=== PATIENT | female | born 1975 | race Caucasian/White ===

== ENCOUNTER 2022-08-20 15:04 | Emergency (ER) | payer MEDICAID ==
[~2022-08-20] VITALS: Ht 185.4 cm; Wt 108.9 kg
[2022-08-20 15:26] VITALS: BP 117/87
[2022-08-20] MEDS ORDERED: KETOROLAC 30 MG/ML VIAL IM ONE (17:25)
[2022-08-20] MEDS ORDERED: LID5T TP (17:40)
[2022-08-20] MEDS ORDERED: DICL100G31 TP (17:40)
--- NOTE | 2022-08-20 18:31 | NUR ---
Patient discharged with v/s stable. Written and verbal after care instructions given and explained. Patient alert, oriented and verbalized understanding of instructions. Ambulatory with steady gait. All questions addressed prior to discharge. ID band removed. Patient advised to follow up with PMD. Rx of LIDODERM given. Patient educated on indication of medication including possible reaction and side effects. Opportunity to ask questions provided and answered.
== END 2022-08-20 18:30 | disposition home or self-care (01) ==
LOC: MED 15:04
DX: M79.604 Pain in right leg (principal); R03.0 Elevated blood-pressure reading, without diagnosis of hypertension; Z88.5 Allergy status to narcotic agent; Z79.899 Other long term (current) drug therapy
CPT/HCPCS: 96372; 99283; J1885

== ENCOUNTER 2024-06-01 07:42 | Emergency (ER) | payer MEDICAID ==
[~2024-06-01] VITALS: Ht 172.7 cm; Wt 104.3 kg
[~2024-06-01 07:42] MED LIST: DICL100G31 TP; LID5T TP
[2024-06-01 07:46] VITALS: BP 123/83; PULSE 79; RESP 15; TEMP 97; O2SAT 97
[2024-06-01] MEDS ORDERED: PENI500T20 PO (08:07)
[2024-06-01] MEDS ORDERED: NAPR-1704 PO (08:07)
[2024-06-01 08:20] VITALS: BP 120/80; PULSE 85; RESP 15; TEMP 36.11400; O2SAT 97
[2024-06-01] MEDS: ACETAMINOPHEN 325 MG TAB PO ONE (08:20)
== END 2024-06-01 08:20 | disposition home or self-care (01) ==
LOC: MED 07:42
DX: K08.89 Other specified disorders of teeth and supporting structures (principal); E11.9 Type 2 diabetes mellitus without complications; E78.5 Hyperlipidemia, unspecified; E03.9 Hypothyroidism, unspecified; F31.9 Bipolar disorder, unspecified; Z79.899 Other long term (current) drug therapy; Z88.8 Allergy status to other drugs, medicaments and biological substances
CPT/HCPCS: 99283